=== PATIENT | male | born 1960 | race Caucasian/White ===

== ENCOUNTER 2018-08-03 17:24 | Emergency (ER) | payer BC ==
[2018-08-03 18:02] VITALS: BP 172/101
== END 2018-08-03 18:38 | disposition left against medical advice (07) ==
LOC: UCEAST 17:24
DX: Z53.21 Procedure and treatment not carried out due to patient leaving prior to being seen by health care provider (principal)

== ENCOUNTER 2018-08-05 17:06 | Emergency (ER) | payer BC ==
[2018-08-05 17:19] VITALS: BP 172/91
--- NOTE | 2018-08-05 17:50 | UC ---
Respiratory Complaint HPI - HPI Summary HPI Summary: 58-year-old male comes in with chief complaint of upper respiratory tract infection symptoms for one week. Started initially with runny nose and some sore throat and its gradually moved down into his chest. Allergies main concern is chest congestion where he's having wheezing and his chest is making noises when he is breathing. He's been using [id number] medications which are not helping with the symptoms. He has been taking hot steamy showers which to help with the symptoms. No prior history of asthma he is not a smoker.. No recent fevers. - History of Current Complaint Chief Complaint: UCRespiratory Stated Complaint: CHEST CONGESTION Time Seen by Provider: 08/05/18 17:30 Pain Intensity: 0 - Allergies/Home Medications Allergies/Adverse Reactions: Allergies Allergy/AdvReac Type Severity Reaction Status Date / Time No Known Allergies Allergy Verified 08/05/18 17:15 Home Medications: Home Medications Losartan/Hydrochlorothiazide [Losartan Potassium/Hydroc 100-25 mg] 1 tab PO DAILY 08/05/18 [History Confirmed 08/05/18] PMH/Surg Hx/FS Hx/Imm Hx Previously Healthy: Yes - Surgical History Surgical History: Yes Surgery Procedure, Year, and Place: BILAT LEG SURGERIES, ELONGATED BILAT CALF MUSCLES - Family History Known Family History: Positive: Cardiac Disease, Hypertension - Social History Alcohol Use: Weekly Alcohol Amount: 2/DAY Substance Use Type: None Smoking Status (MU): Never Smoked Tobacco Review of Systems All Other Systems Reviewed And Are Negative: Yes Constitutional: Positive: Negative Skin: Positive: Negative Eyes: Positive: Negative ENT: Positive: Sore Throat, Nasal Discharge, Sinus Congestion Respiratory: Positive: Cough, Other - WHEEZING, SEE HPI Cardiovascular: Positive: Negative Gastrointestinal: Positive: Negative Motor: Positive: Negative Neurovascular: Positive: Negative Musculoskeletal: Positive: Negative. Negative: Calf Tenderness, Edema Neurological: Positive: Negative Psychological: Positive: Negative Is Patient Immunocompromised?: No Physical Exam Triage Information Reviewed: Yes Appearance: Well-Appearing, No Pain Distress, Well-Nourished Vital Signs: Initial Vital Signs Temp 98.0 F 08/05/18 17:14 Pulse 77 08/05/18 17:14 Resp 18 08/05/18 17:14 BP 172/91 08/05/18 17:14 Pulse Ox 98 08/05/18 17:14 Vital Signs Reviewed: Yes Eye Exam: Normal Eyes: Positive: Conjunctiva Clear ENT: Positive: Pharyngeal erythema, Nasal congestion, TMs normal Neck exam: Normal Neck: Positive: Supple Respiratory: Positive: Lungs clear, Normal breath sounds, No respiratory distress Cardiovascular: Positive: RRR Musculoskeletal Exam: Normal Musculoskeletal: Positive: Strength Intact, ROM Intact, No Edema, Other: - NO CALF TENDERNESS Neurological Exam: Normal Neurological: Positive: Alert Psychological Exam: Normal Psychological: Positive: Age Appropriate Behavior Skin Exam: Normal Respiratory Course/Dx - Course Course Of Treatment: DISCUSSED VIRAL VERSES BACTERIAL INFECTION AND THE ROLE OF ANTIBIOTICS. THE PATIENT WISHES TO BE ON ANTIBIOTICS AT THIS TIME. - Differential Dx/Diagnosis Provider Diagnosis: Bronchitis with bronchospasm Discharge - Sign-Out/Discharge Documenting (check all that apply): Patient Departure All imaging exams completed and their final reports reviewed: No Studies - Discharge Plan Condition: Stable Disposition: HOME Prescriptions: Albuterol HFA INHALER* [Ventolin HFA Inhaler*] 2 puff INH Q4H PRN #1 mdi PRN Reason: Wheezing Azithromyxin FELIX (NF) [Z-Felix (Zithromax) 250 mg tabs #6] 2 tab PO .TODAY, THEN 1 DAILY #6 tab Patient Education Materials: Acute Bronchitis (ED), Bronchospasm (ED) Referrals: Chi Fan MD [Primary Care Provider] - Additional Instructions: FOLLOW UP WITH YOUR DOCTOR IF NOT COMPLETELY IMPROVED. GET RECHECKED SOONER FOR ANY WORSENING OF YOUR CONDITION OR QUESTIONS OR CONCERNS. - Billing Disposition and Condition Condition: STABLE Disposition: Home
== END 2018-08-05 18:36 | disposition home or self-care (01) ==
LOC: UCEAST 17:06
DX: J20.9 Acute bronchitis, unspecified (principal); I10 Essential (primary) hypertension; I25.10 Atherosclerotic heart disease of native coronary artery without angina pectoris
CPT/HCPCS: 99212; G0463

== ENCOUNTER 2018-11-19 16:06 | Emergency (ER) | payer BC ==
[2018-11-19 16:18] VITALS: BP 156/97
--- NOTE | 2018-11-19 16:27 | UC ---
Ear Complaint HPI - HPI Summary HPI Summary: Patient has had cold symptoms over the past 2 days and left ear pain. He states he's also been swimming underwater a little bit. - History of Current Complaint Chief Complaint: UCEar Stated Complaint: EAR ACHE Hx Obtained From: Patient Onset/Duration: Gradual Onset Severity Initially: Mild Severity Currently: Mild Pain Intensity: 5 Aggravating Factors: Nothing Alleviating Factors: Nothing Associated Signs/Symptoms: Positive: URI Symptoms - Allergies/Home Medications Allergies/Adverse Reactions: Allergies Allergy/AdvReac Type Severity Reaction Status Date / Time No Known Allergies Allergy Verified 08/05/18 17:15 Home Medications: Home Medications dilTIAZem HCl [Diltiazem 24Hr ER] 11/19/18 [History] PMH/Surg Hx/FS Hx/Imm Hx Previously Healthy: Yes Cardiovascular History: Hypertension - Surgical History Surgical History: Yes Surgery Procedure, Year, and Place: BILAT LEG SURGERIES, ELONGATED BILAT CALF MUSCLES - Family History Known Family History: Positive: Cardiac Disease, Hypertension - Social History Alcohol Use: Daily Alcohol Amount: 2/DAY Substance Use Type: None Smoking Status (MU): Never Smoked Tobacco Review of Systems All Other Systems Reviewed And Are Negative: Yes ENT: Positive: Ear Ache, Nasal Discharge Is Patient Immunocompromised?: No Physical Exam Triage Information Reviewed: Yes Appearance: Well-Appearing, No Pain Distress, Well-Nourished Vital Signs: Initial Vital Signs Temp 97.0 F 11/19/18 16:11 Pulse 97 11/19/18 16:11 Resp 16 11/19/18 16:11 BP 156/97 11/19/18 16:11 Pulse Ox 98 11/19/18 16:11 Vital Signs Reviewed: Yes Eye Exam: Normal ENT: Positive: Pharynx normal, TM red - Left tragus is mildly tender on palpation and some pain with manipulation of the ear. Left tympanic membrane is erythematous with moderate landmarks and distorted light reflex. Ear canal is mildly erythematous with mild swelling., Uvula midline Neck: Positive: Supple, Nontender, No Lymphadenopathy Respiratory: Positive: Lungs clear, Normal breath sounds, No respiratory distress, No accessory muscle use Cardiovascular: Positive: RRR, No Murmur, Pulses Normal, Brisk Capillary Refill Musculoskeletal Exam: Normal Neurological Exam: Normal Psychological Exam: Normal Skin Exam: Normal Ear Complaint Course/Dx - Course Course Of Treatment: Patient is comfortable here. He has a left otitis externa and left otitis media. I'm going to treated with Augmentin and Cortisporin ear drops - Differential Dx/Diagnosis Provider Diagnosis: Left otitis media, Left otitis externa Discharge - Sign-Out/Discharge Documenting (check all that apply): Patient Departure All imaging exams completed and their final reports reviewed: No Studies - Discharge Plan Condition: Fair Disposition: HOME Prescriptions: Amoxicillin/Clavulanate TAB* [Augmentin TAB 875*] 875 mg PO BID 10 Days #20 tab Neomyc/Polym/HC 1% OTIC SUSP* [Cortisporin Otic Susp 1%*] 4 drop LEFT EAR QID # 1 btl Patient Education Materials: Otitis Externa (DC), Ear Infection (ED) Referrals: Chi Fan MD [Primary Care Provider] - Additional Instructions: Keep ears clean and dry, take the Augmentin with food, follow-up with your primary care provider in 4 or 5 days if no improvement. - Billing Disposition and Condition Condition: FAIR Disposition: Home
== END 2018-11-19 16:38 | disposition home or self-care (01) ==
LOC: UCEAST 16:06
DX: H66.92 Otitis media, unspecified, left ear (principal); H60.92 Unspecified otitis externa, left ear
CPT/HCPCS: 99212; G0463

== ENCOUNTER 2018-12-03 10:07 | Emergency (ER) | payer BC ==
--- NOTE | 2018-12-03 10:20 | UC ---
Ear Complaint HPI - HPI Summary HPI Summary: 58-year-old male who has been treated for otitis media and otitis externa and is finishing his amoxicillin today. He wanted his ears rechecked and stated that he isn't quite sure that it has 100% cleared. Still feels and hears some echoing but has no pain. - History of Current Complaint Chief Complaint: UCEar Stated Complaint: LT EAR PAIN Time Seen by Provider: 12/03/18 10:19 Hx Obtained From: Patient Onset/Duration: Gradual Onset Severity Initially: Moderate Severity Currently: Mild Pain Intensity: 8 Aggravating Factors: Nothing Alleviating Factors: Nothing - Allergies/Home Medications Allergies/Adverse Reactions: Allergies Allergy/AdvReac Type Severity Reaction Status Date / Time No Known Allergies Allergy Verified 12/03/18 10:16 PMH/Surg Hx/FS Hx/Imm Hx Previously Healthy: Yes Cardiovascular History: Hypertension - Surgical History Surgical History: Yes Surgery Procedure, Year, and Place: BILAT LEG SURGERIES, ELONGATED achilles tendons - Family History Known Family History: Positive: Cardiac Disease, Hypertension - Social History Alcohol Use: Daily Alcohol Amount: 2/DAY Substance Use Type: None Smoking Status (MU): Never Smoked Tobacco Review of Systems All Other Systems Reviewed And Are Negative: Yes ENT: Positive: Ear Ache - Ear pain is much better he states right now he is pain free occasionally will have some pain and echoing in his left ear Is Patient Immunocompromised?: No Physical Exam Triage Information Reviewed: Yes Appearance: Well-Appearing, No Pain Distress, Well-Nourished Vital Signs: Initial Vital Signs Temp 98 F 12/03/18 10:12 Pulse 66 12/03/18 10:12 Resp 17 12/03/18 10:12 BP 00/00 12/03/18 10:12 Pulse Ox 100 12/03/18 10:12 Vital Signs Reviewed: Yes Eyes: Positive: Conjunctiva Clear ENT: Positive: Pharynx normal, TMs normal, Uvula midline Neck: Positive: Supple, Nontender, No Lymphadenopathy Respiratory: Positive: Lungs clear, Normal breath sounds, No respiratory distress, No accessory muscle use Cardiovascular: Positive: RRR, No Murmur, Pulses Normal, Brisk Capillary Refill Musculoskeletal Exam: Normal Neurological Exam: Normal Psychological Exam: Normal Skin Exam: Normal Ear Complaint Course/Dx - Course Course Of Treatment: The patient is finishing his amoxicillin today. I believe at this point time the ear infection has cleared and the otitis externa has cleared. He can swim but not underwater for a few more days and then he is to get some earplugs he may also use the alcohol drops after has finished swimming. - Differential Dx/Diagnosis Provider Diagnosis: Otalgia of left ear Discharge - Sign-Out/Discharge Documenting (check all that apply): Patient Departure All imaging exams completed and their final reports reviewed: No Studies - Discharge Plan Condition: Good Disposition: HOME Patient Education Materials: Earache (ED) Referrals: Chi Fan MD [Primary Care Provider] - Additional Instructions: No swimming underwater for a few more days then wear earplugs. Follow-up with your primary care provider as needed if no improvement or if worsening symptoms. - Billing Disposition and Condition Condition: GOOD Disposition: Home - Attestation Statements Provider Attestation: I am administratively signing this document. I was available for consultation for this patient. I did not evaluate the patient, did not have a doctor/patient relationship with the patient, or participate in any medical decision making or disposition decisions unless I am specifically named in the chart as having consulted on the patient. If I have consulted on the patient, please see my own ED note on the patient encounter. Michel Harris MD
[2018-12-03 10:22] VITALS: BP 140/88
== END 2018-12-03 10:30 | disposition home or self-care (01) ==
LOC: UCEAST 10:07
DX: H92.02 Otalgia, left ear (principal); I10 Essential (primary) hypertension
CPT/HCPCS: 99211; G0463